=== PATIENT | female | born 1940 | race Caucasian/White ===

== ENCOUNTER 2016-09-29 10:26 | Observation (INO) | payer MEDICARE ==
[2016-09-29] MEDS ORDERED: ONDANSETRON HCL 4 MG/2 ML VIAL ONE (10:46)
[2016-09-29] MEDS ORDERED: ACETAMINOPHEN 325 MG TABLET PO ONE ×2 (10:46→10:47)
[2016-09-29 10:47] LABS: BASOPHILS 0.4 % (0.0-2.0); EOSINOPHILS 0.6 % (0.0-6.0); HEMATOCRIT 44.2 % (36.0-48.0); HEMOGLOBIN 14.9 g/dL (12.0-16.0); LYMPHOCYTES 5.8 % (20.0-40.0); LYMPHOCYTES# 0.4 X 10^3uL (0.8-3.8); MEAN CELL VOLUME 84.9 fL (84.0-102.0); MEAN CORPUS. HGB CONCENTRATION 33.7 g/dL (32.0-36.0); MEAN CORPUSCULAR HEMOGLOBIN 28.6 pg (29.0-35.0); MEAN PLATELET VOLUME 7.7 fL (7.4-10.4); MONOCYTES 0.2 % (2.0-10.0); NEUTROPHILS# 6.9 X 10^3uL (2.6-6.7); PLATELET COUNT 186 X 10^3uL (130-440); RED CELL DISTRIBUTION WIDTH 13.2 % (11.5-14.5); WHITE BLOOD COUNT 7.3 X 10^3uL (3.9-10.7)
[2016-09-29 10:59] LABS: ALBUMIN 4.2 g/dL (3.5-5.0); ALKALINE PHOSPHATASE 71 U/L (38-126); ALT 26 U/L (9-52); AST 20 U/L (14-36); BILIRUBIN, DIRECT 0.3 mg/dL (0.0-0.4); BILIRUBIN, TOTAL 0.8 mg/dL (0.2-1.3); BLOOD UREA NITROGEN 12 mg/dL (7-17); CHLORIDE 99 mmol/L (98-107); CREATININE 0.8 mg/dL (0.5-1.0); EST GLOMERULAR FILTRATION RATE > 60 mL/min; GLUCOSE 104 mg/dL (70-100); LIPASE 260 U/L (23-300); POTASSIUM 3.8 mmol/L (3.5-5.1); SODIUM 141 mmol/L (137-145); TOTAL PROTEIN 7.3 g/dL (6.3-8.2)
[2016-09-29 11:20] LABS: URINE MUCUS NONE SEEN (Up to 25%)
[2016-09-29] MEDS ORDERED: LEVOFLOXACIN/D5W 150 ML IV ONE (11:30)
[2016-09-29 11:40] LABS: URINE APPEARANCE CLEAR; URINE BACTERIA NONE SEEN (<10/hpf); URINE BILIRUBIN NEGATIVE (NEGATIVE); URINE COLOR YELLOW; URINE GLUCOSE NORMAL (NEGATIVE); URINE KETONE NEGATIVE (NEGATIVE); URINE LEUKOCYTE ESTERASE NEGATIVE (NEGATIVE); URINE NITRITE NEGATIVE (NEGATIVE); URINE PH 5.5 (5-7); URINE PROTEIN NEGATIVE (NEG - TRACE); URINE RBC 0-5/hpf (0-5/hpf); URINE SQUAMOUS EPITHELIAL CELL 0-5/hpf (<= 15/hpf); URINE UROBILINOGEN NORMAL (NEG-1mg/dL); URINE WBC 0-4/hpf (0-4/hpf)
[2016-09-29 11:41] LABS: URINE BLOOD TRACE (NEGATIVE)
[2016-09-29] MEDS ORDERED: HOME MEDICATION LIST NEEDED 1 EA EACH MC ONE (13:55)
[2016-09-29] MEDS ORDERED: metroNIDAZOLE 500 MG TABLET PO ONE (14:00)
--- NOTE | 2016-09-29 15:35 | ER NURSING DOCUMENTATION ---
Nurse's Notes [facility] Name:Yasmine Harrison Age:76 yrs Sex:Female :1940 Arrival Date:09/29/2016 Time:10:26 Bed4 Private MD:Tori Araiza Diagnosis:Diverticulitis w/o Hemorrhage Presentation: 09/29 10:28 Presenting complaint: Patient states: pt has had uncontrollable shaking since [address] also states she has some abd pain. Transition of care: Home. Care prior to arrival: IV initiated. gauge and site 18 G right AC. 10:28 Method Of Arrival: EMS: 410 st 10:31 Notified ED Physician of Dr. Cruz notified. st 10:31 Acuity: RON 2 st Triage Assessment: 10:28 General: Appears ill, uncomfortable, Behavior is cooperative. st 10:28 Pain: Denies pain. Complains of pain in abdomen Unable to use pain scale. pt has no st pain now but she has had lower abd pain. EENT: Oral mucosa is dry. Neuro: No deficits noted. Cardiovascular: Capillary refill < 3 seconds Heart tones present. Respiratory: No deficits noted. GI: Abdomen is flat, non- distended Abd is soft X 4 quads Abd is non tender X 4 quads Reports nausea, abd pain generalised. : Reports urinary frequency "maybe a little more then usual but some times that can be normal". Musculoskeletal: pt has whole body shivering. Historical: - Allergies: Sulfa (Sulfonamide Antibiotics); Tape; - Home Meds: 1. simethicone 80 mg oral tab 2. losartan 50 mg oral tab 1 tab once daily 3. gabapentin 100 mg oral tab 4. ranitidine HCl 150 mg oral cap 1 cap 2 times per day 5. Lactaid Oral daily - PMHx: HYPERTENSION; GERD; ANXIETY; - PSHx: TONSILLECTOMY; HYSTERECTOMY; - Tetanus: > 10 years. - Ebola Screening: : Patient denies exposure to infectious person. Patient denies travel to an Ebola-affected area in the 21 days before illness onset. . - Immunization history: Flu Vaccine < 1 year. - Social history: Smoking status: Patient states was never smoker of tobacco. Patient/guardian denies using alcohol, marijuana. Screenin:02 Infectious Disease Risk None. Abuse screen: Denies threats or abuse. Denies injuries st from another. Nutritional screening: No deficits noted. Assessment: 11:23 General: pt is no longer shaking and states she does not feel as cold. . st 13:27 General: pt resting quietly. st Vital Signs: 10:28 BP 133 / 87; Pulse 113; Resp 20; Temp 100.7(TE); Pulse Ox 92% on R/A; Weight 58.97 kg; st Height 5 ft. 1 in. (154.94 cm); Pain 0/10; 11:18 BP 113 / 58; Pulse 112; Pulse Ox 94% ; st 11:30 Temp 102.6; st 11:30 BP 109 / 61; Pulse 115; Pulse Ox 93% ; st 13:26 BP 104 / 59; Pulse 94; Resp 16; Temp 99.7; Pulse Ox 93% on 2 lpm NC; Pain 0/10; st 10:28 Body Mass Index 24.56 (58.97 kg, 154.94 cm) st ED Course: 10:28 Patient arrived in ED. ds 10:28 Tori Araiza MD is Private Physician. ds 10:[address] 10:30 Dalia Ornelas, RN is Primary Nurse. st 10:[address] 10:34 Erik Cruz MD is Attending Physician. sc 10:44 Port Xray Completed. ms 11:00 Second set of blood cultures drawn. st 11:02 Valuables Remains with patient Patient has correct armband on for positive st identification. Placed in gown. Bed in low position. Call light in reach. Side rails up X2. nuclear monitoring technician on. Pulse ox on. NIBP on. 11:17 Straight cath inserted Specimen obtained. st 11:17 Urine collected. I & O cath specimen. st 11:20 Oxygen Oxygen administration via nasal cannula @ 2L/min. st 12:33 Assisted to bedside commode. st 12:48 Inserted peripheral IV: 20 gauge in left antecubital area Discontinued IV pulled by pt. st 12:[address] meenu 13:24 Patient moved back from [address]. meenu 13:58 Mickey Day MD is Admitting Physician. sc Administered Medications: 10:40 Drug: NS 0.9% 500 ml; Route: IV; Rate: bolus; Site: right antecubital; st 11:57 Follow up: IV Status: Completed infusion; IV Intake: 500ml st 10:40 Drug: Zofran 4 mg; Route: IVP; Infused Over: 2 mins; Site: right antecubital; st 10:49 Follow up: Response: Nausea is decreased st 10:49 Drug: Acetaminophen 975 mg; Route: PO; st 13:28 Follow up: Response: fever down st 11:23 Drug: Levaquin 750 mg; Route: IVPB; Site: right antecubital; st 13:27 Follow up: IV Status: Completed infusion; IV Intake: 150ml st 11:57 Drug: NS 0.9% 500 ml; Route: IV; Rate: bolus; Site: right antecubital; st 13:27 Follow up: IV Status: Completed infusion; IV Intake: 500ml st 13:53 Drug: Flagyl 500 mg; Route: PO; st 15:34 Follow up: Response: No adverse reaction st Intake: 11:57 IV: 500ml; Total: 500ml. st 13:27 IV: 500ml; Total: 1000ml. st 13:27 IV: 150ml; Total: 1150ml. st Outcome: 13:59 Decision to Admit by Provider. ri 14:29 Discharge instructions given to patient, Instructed on need to admit st 15:33 Admitted to Med/surg accompanied by nurse. st 15:33 Condition: stable 15:33 Report given to RN 15:34 Patient left the ED. st Signatures: Dalia Ornelas RN RN st Vicenta, Erica, Reg Reg Erik Cisse MD MD sc Strickland, Mary ms Abbott, Laura lea
--- NOTE | 2016-09-29 15:35 | ER PHYSICIAN DOCUMENTATION ---
Physician Documentation [facility] Name:Yasmine Harrison Age:76 yrs Sex:Female :1940 Arrival Date:09/29/2016 Time:10:26 Bed4 Private MD:Tori Araiza ED, Scott Disposition: 09/29/16 13:59 Admit ordered for Mickey Day. Preliminary diagnosis is Diverticulitis w/o Hemorrhage. - Bed requested for Medical/Surgical. - Condition is Good. - Problem is new. - Symptoms have improved. 23 HR OBS Yes HPI: 09/29 13:34 This 76 yrs old Female presents to ER via EMS with complaints of Flu Symptoms.sc 13:34 The patient presents with abdominal pain in the lower abdomen, in the left lower sc quadrant. Onset: The symptoms/episode began/occurred this morning. The symptoms do not radiate. Associated signs and symptoms: Pertinent positives: dysuria, fever. The symptoms are described as constant. Severity of pain: At its worst the pain was moderate. Historical: - Allergies: Sulfa (Sulfonamide Antibiotics); Tape; - Home Meds: 1. simethicone 80 mg oral tab 2. losartan 50 mg oral tab 1 tab once daily 3. gabapentin 100 mg oral tab 4. ranitidine HCl 150 mg oral cap 1 cap 2 times per day 5. Lactaid Oral daily - PMHx: HYPERTENSION; GERD; ANXIETY; - PSHx: TONSILLECTOMY; HYSTERECTOMY; - Tetanus: > 10 years. - Ebola Screening: : Patient denies exposure to infectious person. Patient denies travel to an Ebola-affected area in the 21 days before illness onset. . - Immunization history: Flu Vaccine < 1 year. - Social history: Smoking status: Patient states was never smoker of tobacco. Patient/guardian denies using alcohol, marijuana. ROS: 13:35 Constitutional: Negative for fever, chills, and weight loss. sc Eyes: Negative for injury, pain, redness, and discharge. ENT: Negative for injury, pain, and discharge. Neck: Negative for injury, pain, and swelling. Cardiovascular: Negative for chest pain, palpitations, and edema. Respiratory: Negative for shortness of breath, cough, wheezing, and pleuritic chest pain. Back: Negative for injury and pain. Skin: Negative for injury, rash, and discoloration. 13:35 Neuro: Negative for headache, weakness, numbness, tingling, and seizure. sc 13:35 Abdomen/GI: Positive for abdominal pain, nausea, rigors. Exam: Constitutional: This is a well developed, well nourished patient who is awake, alert, and in no acute distress. Head/Face: Normocephalic, atraumatic. Eyes: Pupils equal round and reactive to light, extra-ocular motions intact. Lids and lashes normal. Conjunctiva and sclera are non-icteric and not injected. Cornea within normal limits. Periorbital areas with no swelling, redness, or edema. ENT: Nares patent. No nasal discharge, no septal abnormalities noted. Tympanic membranes are normal and external auditory canals are clear. Oropharynx with no redness, swelling, or masses, exudates, or evidence of obstruction, uvula midline. Mucous membranes moist. Neck: Trachea midline, no thyromegaly or masses palpated, and no cervical lymphadenopathy. Supple, full range of motion without nuchal rigidity, or vertebral point tenderness. No meningismus. Chest/axilla: Normal chest wall appearance and motion. Nontender with no deformity. No lesions are appreciated. Cardiovascular: Regular rate and rhythm with a normal S1 and S2. No gallops, murmurs, or rubs. Normal PMI, no JVD. No pulse deficits. Respiratory: Lungs have equal breath sounds bilaterally, clear to auscultation and percussion. No rales, rhonchi or wheezes noted. No increased work of breathing, no retractions or nasal flaring. Back: No spinal tenderness. No costovertebral tenderness. Full range of motion. Skin: Warm, dry with normal turgor. Normal color with no rashes, no lesions, and no evidence of cellulitis. 13:57 Neuro: Awake and alert, GCS 15, oriented to person, place, time, and situation. sc Cranial nerves II-XII grossly intact. Motor strength 5/5 in all extremities. Sensory grossly intact. Cerebellar exam normal. Normal gait. 13:57 Abdomen/GI: Inspection: abdomen appears normal, Bowel sounds: active, Palpation: mild abdominal tenderness, in the left lower quadrant, Liver: no appreciated palpable abnormalities. Vital Signs: 10:28 BP 133 / 87; Pulse 113; Resp 20; Temp 100.7(TE); Pulse Ox 92% on R/A; Weight 58.97 kg; st Height 5 ft. 1 in. (154.94 cm); Pain 0/10; 11:18 BP 113 / 58; Pulse 112; Pulse Ox 94% ; st 11:30 Temp 102.6; st 11:30 BP 109 / 61; Pulse 115; Pulse Ox 93% ; st 13:26 BP 104 / 59; Pulse 94; Resp 16; Temp 99.7; Pulse Ox 93% on 2 lpm NC; Pain 0/10; st 10:28 Body Mass Index 24.56 (58.97 kg, 154.94 cm) st MDM: 10:58 Patient medically screened. ny 13:57 Differential diagnosis: bowel obstruction, cholecystitis, diverticulitis, non-specific sc abd pain. Data reviewed: vital signs, nurses notes, lab test result(s), radiologic studies, and as a result, I will admit patient, administer antibiotics. Counseling: I had a detailed discussion with the patient and/or guardian regarding: the historical points, exam findings, and any diagnostic results supporting the discharge/admit diagnosis, lab results, radiology results, the need for further work-up and treatment in the hospital. 09/29 11:02 Order name: LACTATE; Complete Time: 11:03 [facility] 09/29 11:02 Interpretation: Abnormal. ny 09/29 11:03 Order name: CBC AUTO DIF, MDIF/RMOR IF IND; Complete Time: 11:04 [facility] 09/29 11:03 Interpretation: Normal Except: NEUTROPHILS 93.0. ny 09/29 11:03 Order name: BASIC METABOLIC PANEL; Complete Time: 11:04 [facility] 09/29 11:04 Interpretation: Normal. ny 09/29 11:03 Order name: HEPATIC PANEL; Complete Time: 11:04 [facility] 09/29 11:04 Interpretation: Normal. ny 09/29 11:03 Order name: LIPASE; Complete Time: 11:04 [facility] 09/29 11:04 Interpretation: Normal. ny 09/29 11:42 Order name: UA W/ MICRO -CULTURE IF IND [facility] 09/29 10:34 Order name: I & O; Complete Time: 10:40 09/29 10:34 Order name: NPO; Complete Time: 10:40 09/29 10:34 Order name: Oxygen; Complete Time: 11:28 st 09/29 10:34 Order name: Place Patient On Monitor; Complete Time: 09/29 10:34 Order name: Pulse Ox Continuous; Complete Time: :40 st Dispensed Medications: 10:40 Drug: NS 0.9% 500 ml; Route: IV; Rate: bolus; Site: right antecubital; st 11:57 Follow up: IV Status: Completed infusion; IV Intake: 500ml st 10:40 Drug: Zofran 4 mg; Route: IVP; Infused Over: 2 mins; Site: right antecubital; st 10:49 Follow up: Response: Nausea is decreased st 10:49 Drug: Acetaminophen 975 mg; Route: PO; st 13:28 Follow up: Response: fever down st 11:23 Drug: Levaquin 750 mg; Route: IVPB; Site: right antecubital; st 13:27 Follow up: IV Status: Completed infusion; IV Intake: 150ml st 11:57 Drug: NS 0.9% 500 ml; Route: IV; Rate: bolus; Site: right antecubital; st 13:27 Follow up: IV Status: Completed infusion; IV Intake: 500ml st 13:53 Drug: Flagyl 500 mg; Route: PO; st 15:34 Follow up: Response: No adverse reaction st Signatures: Dalia Ornelas RN RN st Chew, Scott, MD MD ny
--- NOTE | 2016-09-29 17:23 | RADIOLOGY REPORT ---
A limited single portable view of the chest demonstrates the heart, vessels and lungs to be unremarkable. No infiltrate, fluid or pneumothorax is seen. IMPRESSION: Unremarkable limited single portable view of the chest. MTDD
--- NOTE | 2016-09-29 17:50 | CT REPORT ---
Radiology report CT abdomen pelvis with contrast Dated September 29, 2016 HISTORY: infection PROCEDURE: 100 cc Isovue 370 was administered without complication. Imaging to the abdomen and pelvis was performed. FINDINGS: There are no prior studies. There is mild bibasilar atelectasis. The spleen, pancreas, adrenal glands and gallbladder appear normal. In the central aspect of the liver there is a simple cyst measuring 5 x 4.2 cm. No ductal dilatation. The aorta is normal in size. Small, subcentimeter periaortic nodes are evident. Small hypodensities in the kidneys are likely cysts. No hydronephrosis. In the sigmoid colon there is a segment of moderate diffuse wall thickening measuring up to 5-6 cm. There is diverticula in this area, along with fatty stranding consistent with acute diverticulitis. No perforation or abscess. No bowel obstruction. The remainder of the bowel is unremarkable. The bladder is normal. The uterus is absent. The adnexal regions are unremarkable. There is no hernia. There is very minimal anterior subluxation of L4 on L5. IMPRESSION: Moderate acute diverticulitis of the sigmoid colon. No perforation, abscess, or obstruction. Remainder of the study is unremarkable except for mild bibasilar atelectasis, and a large simple cyst in the liver. Report called to Dr. mccray Final Electronic Signature: This report was electronically signed by Humza Bear MD on 09/29/2016 1:36 PM. emmanuel / MARIXA
[2016-09-29] MEDS: SIMETHICONE CHEW 80 MG TABLET PO PRN (18:29)
[2016-09-29] MEDS ORDERED: PANTOPRAZOLE 40 MG TABLET PO SCH (18:45)
[2016-09-29] MEDS: metroNIDAZOLE/SOD CL 500 MG in NORMAL SALINE PREMIX 100 ML 1 BAG IV SCH (20:06)
[2016-09-29] MEDS: LORazepam 1 MG TABLET PO SCH (20:08)
[2016-09-29] MEDS: GABAPENTIN 100 MG CAPSULE PO SCH (20:08)
[2016-09-29] MEDS ORDERED: metroNIDAZOLE/SOD CL 100 ML IV ONE (20:15)
[2016-09-29] MEDS: ACETAMINOPHEN 160 MG/5 ML UDC PO PRN (20:27)
[2016-09-29] MEDS ORDERED: O2 HUMIDIFIER 650 ML BOTTLE INHALATION ONE (22:00)
[2016-09-29] MEDS: NORMAL SALINE 1,000 ML IV SCH (23:49)
--- NOTE | 2016-09-30 00:19 | HISTORY & PHYSICAL ---
DATE OF ADMISSION: 09/29/16 PRIMARY CARE PHYSICIAN: Dr. Araiza. CHIEF COMPLAINT: Fever and chills. HISTORY OF PRESENT ILLNESS: This 76-year-old woman has been having some malaise for about a month and some minor diarrhea in the morning for about 2 weeks. This morning, however, she developed fevers and chills, and some mild lower abdominal discomfort. She came to the emergency room for evaluation where she was found to have diverticulitis on CT scan. Her lactate was above 3 and she was felt to have possibly early sepsis so was admitted. In the ED she was given Levaquin 750 mg IV plus Flagyl 500 mg IV. When I evaluated the patient at 6:30 p.m. she was feeling fine. She did have a blood pressure in the low 90s, however. PAST MEDICAL HISTORY 1. Generalized anxiety disorder. 2. Sleep apnea. 3. Hypertriglyceridemia. 4. GERD. 5. Hiatal hernia. 6. Essential hypertension. MEDICATIONS AT HOME Gabapentin 100 mg b.i.d. for anxiety. Lorazepam 0.5 mg t.i.d. regularly. Losartan 50 mg q.a.m. Omeprazole 20 mg q.a.m. Ranitidine 150 mg b.i.d. Gaviscon extra strength p.o. p.r.n. for heartburn. She uses CPAP and oxygen at night. ALLERGIES: Include adhesive tape and sulfa. PAST SURGICAL HISTORY 1. Tonsillectomy. 2. Hysterectomy. FAMILY HISTORY: Her mother had Parkinsons disease. Her brother has diabetes. IMMUNIZATIONS: She had a flu shot on 09/02/15 and had Pneumococcal 13 valent conjugate vaccine on 02/03/16 and the Pneumococcal 23 valent polysaccharide vaccine on 06/29/11. SOCIAL HISTORY: The patient lives here in [facility] alone. She has help from neighbors. She has a full code status. REVIEW OF SYSTEMS GENERAL: Weakness, chills and fever initially. RESPIRATORY: Denies shortness of breath, cough, wheezing. CARDIOVASCULAR: No chest pain or palpitations. GI: Some minor diffuse lower abdominal discomfort earlier today but none today. Mild diarrhea. No nausea and vomiting. : No dysuria. Some urinary frequency. MUSCULOSKELETAL: No myalgias. No pedal edema. PHYSICAL EXAMINATION VITAL SIGNS: Her vital signs on admission were a temperature of 36.6, blood pressure was 92/54, pulse of 74, respirations 18, and O2 sat was 92% on 2 liters. GENERAL: She was alert and oriented times 3 and in no acute distress. HEENT: The oral mucosa was moist. Sinus nontender. NECK: Without adenopathy. LUNGS: Clear. HEART: RRR, no murmur. ABDOMEN: Soft and nontender, nondistended without masses or hepatosplenomegaly. EXTREMITIES: Without edema. NEUROLOGIC: Nonfocal. LABORATORY DATA: Her serum lactate was 3.4. Sodium 141, potassium 3.8, chloride 99, CO2 26. Her nonfasting glucose was at 104 and a creatinine of 0.8. Liver function tests were all normal. White count 7.3 with 93% neutrophils and 6% lymphs, hemoglobin was 15, hematocrit 44 and platelets were 186,000. IMAGING: Included a CT of the abdomen which showed some diverticulitis in the sigmoid colon without abscess. IMPRESSION: Acute diverticulitis with fever and chills and possible early sepsis. Elevated lactate. Mild hypotension. COMORBIDITIES 1. Chronic hypertension. 2. Chronic generalized anxiety disorder. PLAN: I will continue the patient on some IV metronidazole through the night. If she is doing well tomorrow morning I anticipate discharging her on Cipro and Flagyl orally at 500 mg b.i.d. She has done well on a liquid diet so we will advance that as tolerated. She will continue to get IV fluids at 125 mL of normal saline per hour through the night but so far is drinking fairly well. I will continue he on her usual Ativan. I am substituting pantoprazole for the omeprazole temporarily for formulary reasons. I will hold her losartan until she has improved her blood pressure. [facility]
[2016-09-30] MEDS: ACETAMINOPHEN 160 MG/5 ML UDC PO PRN ×3 (02:22→15:33)
[2016-09-30] MEDS ORDERED: metroNIDAZOLE/SOD CL 100 ML IV ONE ×2 (04:40→19:53)
[2016-09-30] MEDS: metroNIDAZOLE/SOD CL 500 MG in NORMAL SALINE PREMIX 100 ML 1 BAG IV SCH ×3 (04:56→19:45)
[2016-09-30 05:40] LABS: BASOPHILS 0.1 % (0.0-2.0); MONOCYTES# 0.4 X 10^3uL (0.2-1.0)
[2016-09-30 05:45] LABS: HEMATOCRIT 37.6 % (36.0-48.0); HEMOGLOBIN 12.9 g/dL (12.0-16.0); LYMPHOCYTES 2.1 % (20.0-40.0); LYMPHOCYTES# 0.2 X 10^3uL (0.8-3.8); MEAN CELL VOLUME 84.3 fL (84.0-102.0); MEAN CORPUS. HGB CONCENTRATION 34.3 g/dL (32.0-36.0); MEAN CORPUSCULAR HEMOGLOBIN 28.9 pg (29.0-35.0); MEAN PLATELET VOLUME 7.6 fL (7.4-10.4); MONOCYTES 4.1 % (2.0-10.0); NEUTROPHILS# 8.4 X 10^3uL (2.6-6.7); PLATELET COUNT 128 X 10^3uL (130-440); RED BLOOD COUNT 4.46 X 10^6uL (4.20-6.10)
[2016-09-30 05:55] LABS: BLOOD UREA NITROGEN 8 mg/dL (7-17); CHLORIDE 107 mmol/L (98-107); CREATININE 0.8 mg/dL (0.5-1.0); EST GLOMERULAR FILTRATION RATE > 60 mL/min; GLUCOSE 113 mg/dL (70-100); SODIUM 138 mmol/L (137-145)
[2016-09-30 06:06] LABS: NEUTROPHILS 93.7 % (54.0-75.0)
[2016-09-30] MEDS: PANTOPRAZOLE 40 MG TABLET PO SCH (06:08)
[2016-09-30] MEDS: GABAPENTIN 100 MG CAPSULE PO SCH ×2 (08:26→22:12)
[2016-09-30] MEDS: LORazepam 1 MG TABLET PO SCH ×3 (08:26→22:10)
[2016-09-30] MEDS: LOSARTAN POTASSIUM 50 MG TABLET PO SCH (08:28)
[2016-09-30] MEDS: NORMAL SALINE 1,000 ML IV SCH (08:46)
--- NOTE | 2016-09-30 08:46 | PROGRESS NOTE: IM APSO ---
Assessment and Plan - Date of Encounter Date of Encounter: 09/30/16 (1) Acute diverticulitis Status: Acute Assessment and plan: She had another bout of fever up to 38.4 accompanied by chills last evening This morning she was still a little hypotensive at 102 systolic. I think it would be wisest to continue treating her here for 1 more day. I will continue her on Flagyl 500 mg IVevery 8 hoursand switch from Levaquin to Cipro 500 mg by mouth twice a day.Dr. Araiza, her PCP, will probably discharge her tomorrow morning. Current Visit: Yes (2) Anxiety Status: Acute Assessment and plan: acute on chronic. Continue lorazepam 0.5 3 times a day and gabapentin 100 twice a day Current Visit: No (3) Diarrhea Status: Acute Assessment and plan: Due to diverticulitis. Resolved Current Visit: Yes (4) Hypertension Status: Acute Assessment and plan: She has actually been hypotensive, probably from an early sepsis-type phenomenon. Continue to hold her losartan for now Current Visit: No - Time Spent With Patient Total time spent with greater than 50% in coordination of care (as documented) at patient's floor/unit and/or counseling patient: IM: PN Subjective General: fatigue, anxiety, fever, chills (last night), no good appetite Cardiovascular: no chest pain, no palpitations Respiratory: no cough, no wheeze, no SOB Gastrointestinal: abdominal pain (very mild diffuse lower abdominal pain.), no diarrhea (resolved) Genitourinary: no dysuria Musculoskeletal: no swelling Integumentary: no rashes Neurological: no headache IM: PN Objective Exam - I&O/Vital Signs I&O: Intake & Output 09/29/16 09/30/16 09/30/16 21:59 05:59 13:59 Intake Total 600 2545 Output Total 600 1150 Balance 0 1395 Weight 63.04 kg 66.224 kg Intake: IV 400 1895 Left Antecubital 400 1895 Oral 200 650 Output: Urine 600 1150 Other: Urine Appearance Clear Urine Color Yellow Stool Size Copious Stool Characteristics Liquid Voiding Method Toilet Toilet # Voids 0 6 # Bowel Movements 4 Vital Signs: Last Vital Signs Temp 36.7 C 09/30/16 07:00 Pulse 85 09/30/16 07:00 Resp 15 09/30/16 07:00 BP 118/50 02/09/17 07:00 Pulse Ox 95 09/30/16 07:00 Oxygen Flow Rate 2 Oxygen Delivery Method Nasal Cannula - Constitutional General appearance: Present: obese. Absent: acute distress - ENT ENT exam: Present: mucous membranes moist - Respiratory Respiratory exam: Present: clear - Cardiovascular Cardiovascular exam: Present: RRR. Absent: systolic murmur - GI/Abdominal GI/Abdominal exam: Present: soft. Absent: distended (obese), tenderness - Neurological Exam Neurological exam: Present: alert, normal gait, oriented X3 - Psychiatric Psychiatric exam: Present: anxious (she only slept 1 hour last night.) - Lab Labs: Laboratory Last Values WBC 9.0 X 10^3uL (3.9-10.7) 09/30/16 05:00 RBC 4.46 X 10^6uL (4.20-6.10) 09/30/16 05:00 Hgb 12.9 g/dL (12.0-16.0) 09/30/16 05:00 Hct 37.6 % (36.0-48.0) 09/30/16 05:00 MCV 84.3 fL (84.0-102.0) 09/30/16 05:00 MCH 28.9 pg (29.0-35.0) L 09/30/16 05:00 MCHC 34.3 g/dL (32.0-36.0) 09/30/16 05:00 RDW 13.0 % (11.5-14.5) 09/30/16 05:00 Plt Count 128 X 10^3uL (130-440) L 09/30/16 05:00 MPV 7.6 fL (7.4-10.4) 09/30/16 05:00 Neutrophils % 93.7 % (54.0-75.0) H 09/30/16 05:00 Lymphocytes % 2.1 % (20.0-40.0) L 09/30/16 05:00 Eosinophils % 0.0 % (0.0-6.0) 09/30/16 05:00 Basophils % 0.1 % (0.0-2.0) 09/30/16 05:00 Neutrophils # 8.4 X 10^3uL (2.6-6.7) H 09/30/16 05:00 Lymphocytes # 0.2 X 10^3uL (0.8-3.8) L 09/30/16 05:00 Monocytes 4.1 % (2.0-10.0) 09/30/16 05:00 Monocytes # 0.4 X 10^3uL (0.2-1.0) 09/30/16 05:00 Eosinophils # 0.0 X 10^3uL (0.0-0.4) 09/30/16 05:00 Basophils # 0.0 X 10^3uL (0.0-0.1) 09/30/16 05:00 Sodium 138 mmol/L (137-145) 09/30/16 05:00 Potassium 4.0 mmol/L (3.5-5.1) 09/30/16 05:00 Chloride 107 mmol/L (98-107) 09/30/16 05:00 Carbon Dioxide 22 mmol/L (22-30) 09/30/16 05:00 BUN 8 mg/dL (7-17) 09/30/16 05:00 Creatinine 0.8 mg/dL (0.5-1.0) 09/30/16 05:00 GFR Calculation > 60 mL/min 09/30/16 05:00 Glucose 113 mg/dL (70-100) H 09/30/16 05:00 Lactic Acid 3.4 mmol/L (0.7-2.1) H 09/29/16 10:15 Calcium 8.0 mg/dL (8.4-10.2) L 09/30/16 05:00 Total Bilirubin 0.8 mg/dL (0.2-1.3) D 09/29/16 10:15 Direct Bilirubin 0.3 mg/dL (0.0-0.4) 09/29/16 10:15 AST 20 U/L (14-36) 09/29/16 10:15 ALT 26 U/L (9-52) 09/29/16 10:15 Alkaline Phosphatase 71 U/L (38-126) 09/29/16 10:15 Total Protein 7.3 g/dL (6.3-8.2) 09/29/16 10:15 Albumin 4.2 g/dL (3.5-5.0) 09/29/16 10:15 Lipase 260 U/L (23-300) 09/29/16 10:15 Urine Color Yellow 09/29/16 11:15 Urine Appearance Clear 09/29/16 11:15 Urine pH 5.5 (5-7) 09/29/16 11:15 Ur Specific Umpire 1.010 (0.001-1.035) 09/29/16 11:15 Urine Protein Negative (NEG - TRACE) 09/29/16 11:15 Urine Ketones Negative (NEGATIVE) 09/29/16 11:15 Urine Blood Trace (NEGATIVE) A 09/29/16 11:15 Urine Nitrate Negative (NEGATIVE) 09/29/16 11:15 Urine Bilirubin Negative (NEGATIVE) 09/29/16 11:15 Urine Urobilinogen Normal (NEG-1mg/dL) 09/29/16 11:15 Ur Leukocyte Esterase Negative (NEGATIVE) 09/29/16 11:15 Urine RBC 0-5/hpf (0-5/hpf) 09/29/16 11:15 Urine WBC 0-4/hpf (0-4/hpf) 09/29/16 11:15 Ur Squamous Epith Cells 0-5/hpf (<= 15/hpf) 09/29/16 11:15 Urine Bacteria None seen (<10/hpf) 09/29/16 11:15 Urine Mucus None seen (Up to 25%) 09/29/16 11:15 Urine Glucose Normal (NEGATIVE) 09/29/16 11:15 Quality Questions - VTE Prophylaxis Assessment VTE Present on Admission?: No Patient at risk for venous thromboembolism?: No VTE Risk Level: High Risk VTE Medical Contraindication: Medical contraindication (she has acute diverticulitis so is at risk for GI bleeding.)
[2016-09-30] MEDS: CIPROFLOXACIN HCL 500 MG TABLET PO SCH ×2 (08:48→19:46)
[2016-09-30] MEDS ORDERED: LOSARTAN POTASSIUM 50 MG TABLET PO SCH (09:00)
[2016-09-30] MEDS: SIMETHICONE CHEW 80 MG TABLET PO PRN (14:15)
[2016-09-30] MEDS ORDERED: NORMAL SALINE FLUSH 250 ML ONE (15:41)
[2016-09-30] MEDS: ONDANSETRON ODT 4 MG TAB.RAPDIS PO PRN (21:56)
[2016-10-01] MEDS ORDERED: metroNIDAZOLE/SOD CL 100 ML IV ONE (04:24)
[2016-10-01] MEDS: metroNIDAZOLE/SOD CL 500 MG in NORMAL SALINE PREMIX 100 ML 1 BAG IV SCH (04:42)
[2016-10-01] MEDS: PANTOPRAZOLE 40 MG TABLET PO SCH (05:57)
[2016-10-01 06:37] LABS: BASOPHILS 0.4 % (0.0-2.0); EOSINOPHILS 1.3 % (0.0-6.0); EOSINOPHILS# 0.1 X 10^3uL (0.0-0.4); HEMATOCRIT 35.9 % (36.0-48.0); HEMOGLOBIN 11.6 g/dL (12.0-16.0); LYMPHOCYTES# 0.5 X 10^3uL (0.8-3.8); MEAN CELL VOLUME 84.9 fL (84.0-102.0); MEAN CORPUS. HGB CONCENTRATION 32.4 g/dL (32.0-36.0); MEAN CORPUSCULAR HEMOGLOBIN 27.5 pg (29.0-35.0); MEAN PLATELET VOLUME 7.8 fL (7.4-10.4); MONOCYTES 7.4 % (2.0-10.0); MONOCYTES# 0.4 X 10^3uL (0.2-1.0); NEUTROPHILS 81.9 % (54.0-75.0); NEUTROPHILS# 4.1 X 10^3uL (2.6-6.7); RED BLOOD COUNT 4.23 X 10^6uL (4.20-6.10); RED CELL DISTRIBUTION WIDTH 13.2 % (11.5-14.5); WHITE BLOOD COUNT 5.1 X 10^3uL (3.9-10.7)
--- NOTE | 2016-10-01 07:57 | PROGRESS NOTE: IM SOAP ---
IM: PN Subjective General: fatigue, anxiety, no good appetite, no fever, no chills Cardiovascular: no chest pain, no palpitations Respiratory: no cough, no wheeze, no SOB Gastrointestinal: abdominal pain (very mild diffuse lower abdominal pain.), vomiting (last sierra), no diarrhea (resolved) Genitourinary: no dysuria Musculoskeletal: no swelling Integumentary: no rashes Neurological: no headache IM: PN Objective Exam - I&O/Vital Signs I&O: Intake & Output 09/30/16 10/01/16 10/01/16 21:59 05:59 13:59 Intake Total 2050 350 Output Total 1050 1300 Balance 1000 -950 Intake: IV 1430 Left Antecubital 1430 Oral 620 350 Output: Urine 1050 1300 Other: Urine Appearance Clear Clear Urine Color Yellow Yellow Stool Size Small Small Stool Characteristics Soft Liquid Voiding Method Toilet Toilet # Voids 7 # Bowel Movements 5 2 Vital Signs: Last Vital Signs Temp 37.1 C 10/01/16 06:36 Pulse 74 10/01/16 06:36 Resp 13 10/01/16 06:36 BP 126/64 10/01/16 06:36 Pulse Ox 94 10/01/16 06:36 Oxygen Flow Rate 2 Oxygen Delivery Method CPAP - Constitutional General appearance: Present: obese. Absent: acute distress - ENT ENT exam: Present: mucous membranes moist - Respiratory Respiratory exam: Present: clear - Cardiovascular Cardiovascular exam: Present: RRR. Absent: systolic murmur - GI/Abdominal GI/Abdominal exam: Present: soft. Absent: distended, tenderness - Extremities Exam Extremities exam: Absent: edema - Neurological Exam Neurological exam: Present: alert, normal gait, oriented X3 - Psychiatric Psychiatric exam: Present: anxious (she only slept 1 hour last night.) - Lab Labs: Laboratory Last Values WBC 5.1 X 10^3uL (3.9-10.7) 10/01/16 06:10 RBC 4.23 X 10^6uL (4.20-6.10) 10/01/16 06:10 Hgb 11.6 g/dL (12.0-16.0) L 10/01/16 06:10 Hct 35.9 % (36.0-48.0) L 10/01/16 06:10 MCV 84.9 fL (84.0-102.0) 10/01/16 06:10 MCH 27.5 pg (29.0-35.0) L 10/01/16 06:10 MCHC 32.4 g/dL (32.0-36.0) 10/01/16 06:10 RDW 13.2 % (11.5-14.5) 10/01/16 06:10 Plt Count 99 X 10^3uL (130-440) L 10/01/16 06:10 MPV 7.8 fL (7.4-10.4) 10/01/16 06:10 Neutrophils % 81.9 % (54.0-75.0) H 10/01/16 06:10 Lymphocytes % 9.0 % (20.0-40.0) L 10/01/16 06:10 Eosinophils % 1.3 % (0.0-6.0) 10/01/16 06:10 Basophils % 0.4 % (0.0-2.0) 10/01/16 06:10 Neutrophils # 4.1 X 10^3uL (2.6-6.7) 10/01/16 06:10 Lymphocytes # 0.5 X 10^3uL (0.8-3.8) L 10/01/16 06:10 Monocytes 7.4 % (2.0-10.0) 10/01/16 06:10 Monocytes # 0.4 X 10^3uL (0.2-1.0) 10/01/16 06:10 Eosinophils # 0.1 X 10^3uL (0.0-0.4) 10/01/16 06:10 Basophils # 0.0 X 10^3uL (0.0-0.1) 10/01/16 06:10 Sodium 138 mmol/L (137-145) 09/30/16 05:00 Potassium 4.0 mmol/L (3.5-5.1) 09/30/16 05:00 Chloride 107 mmol/L (98-107) 09/30/16 05:00 Carbon Dioxide 22 mmol/L (22-30) 09/30/16 05:00 BUN 8 mg/dL (7-17) 09/30/16 05:00 Creatinine 0.8 mg/dL (0.5-1.0) 09/30/16 05:00 GFR Calculation > 60 mL/min 09/30/16 05:00 Glucose 113 mg/dL (70-100) H 09/30/16 05:00 Lactic Acid 3.4 mmol/L (0.7-2.1) H 09/29/16 10:15 Calcium 8.0 mg/dL (8.4-10.2) L 09/30/16 05:00 Total Bilirubin 0.8 mg/dL (0.2-1.3) D 09/29/16 10:15 Direct Bilirubin 0.3 mg/dL (0.0-0.4) 09/29/16 10:15 AST 20 U/L (14-36) 09/29/16 10:15 ALT 26 U/L (9-52) 09/29/16 10:15 Alkaline Phosphatase 71 U/L (38-126) 09/29/16 10:15 Total Protein 7.3 g/dL (6.3-8.2) 09/29/16 10:15 Albumin 4.2 g/dL (3.5-5.0) 09/29/16 10:15 Lipase 260 U/L (23-300) 09/29/16 10:15 Urine Color Yellow 09/29/16 11:15 Urine Appearance Clear 09/29/16 11:15 Urine pH 5.5 (5-7) 09/29/16 11:15 Ur Specific Hope 1.010 (0.001-1.035) 09/29/16 11:15 Urine Protein Negative (NEG - TRACE) 09/29/16 11:15 Urine Ketones Negative (NEGATIVE) 09/29/16 11:15 Urine Blood Trace (NEGATIVE) A 09/29/16 11:15 Urine Nitrate Negative (NEGATIVE) 09/29/16 11:15 Urine Bilirubin Negative (NEGATIVE) 09/29/16 11:15 Urine Urobilinogen Normal (NEG-1mg/dL) 09/29/16 11:15 Ur Leukocyte Esterase Negative (NEGATIVE) 09/29/16 11:15 Urine RBC 0-5/hpf (0-5/hpf) 09/29/16 11:15 Urine WBC 0-4/hpf (0-4/hpf) 09/29/16 11:15 Ur Squamous Epith Cells 0-5/hpf (<= 15/hpf) 02/08/17 11:15 Urine Bacteria None seen (<10/hpf) 09/29/16 11:15 Urine Mucus None seen (Up to 25%) 09/29/16 11:15 Urine Glucose Normal (NEGATIVE) 09/29/16 11:15 Assessment and Plan - Date of Encounter Date of Encounter: 10/01/16 (1) Acute diverticulitis Status: Acute Assessment and plan: Clinically improving with less abd discomfort, no further fever or chills. However, poor PO intake, vomitted last night. Will move all meds to PO, dose Zofran before meals (discussed with pt and nurse) and see if PO intake improves and tolerating PO meds well. Current Visit: Yes (2) Anxiety Status: Chronic Current Visit: No (3) Hypertension Status: Chronic Assessment and plan: Cozaar presently held as was hypotensive yesterday, but will need restarted at d /c or with f/u as outpt, as BPs indicate. Would not restart now as BP is at goal , probably will not tolerate Cozaar at this time. Current Visit: No - Time Spent With Patient Total time spent with greater than 50% in coordination of care (as documented) at patient's floor/unit and/or counseling patient:
[2016-10-01] MEDS: metroNIDAZOLE 500 MG TABLET PO SCH ×3 (09:35→20:42)
[2016-10-01] MEDS: LORazepam 0.5 MG TABLET PO SCH ×3 (09:35→20:42)
[2016-10-01] MEDS: GABAPENTIN 100 MG CAPSULE PO SCH ×2 (09:35→20:42)
[2016-10-01] MEDS: CIPROFLOXACIN HCL 500 MG TABLET PO SCH ×2 (09:35→20:42)
[2016-10-01] MEDS: LOSARTAN POTASSIUM 50 MG TABLET PO SCH (09:35)
[2016-10-01] MEDS ORDERED: WATER IRRIG 1,000 ML BOTTLE ONE (10:09)
[2016-10-01] MEDS ORDERED: ACETAMINOPHEN 325 MG TABLET PO PRN (15:16)
[2016-10-01] MEDS: ONDANSETRON ODT 4 MG TAB.RAPDIS PO PRN (15:22)
[2016-10-01] MEDS ORDERED: ACETAMINOPHEN 325 MG TABLET PO ONE (15:25)
[2016-10-01 23:12] VITALS: BP 127/73; PULSE 69; RESP 13; TEMP 98.6; O2SAT 92
== END 2016-10-02 08:15 | disposition home or self-care (01) ==
LOC: ER 10:26 → IN 14:02
PROVIDERS: ADMIT Family Medicine; ATTEND Family Medicine
DX: K57.32 Diverticulitis of large intestine without perforation or abscess without bleeding (principal); I10 Essential (primary) hypertension; F41.9 Anxiety disorder, unspecified; E78.1 Pure hyperglyceridemia; K21.9 Gastro-esophageal reflux disease without esophagitis; G47.39 Other sleep apnea; Z79.899 Other long term (current) drug therapy; Z74.3 Need for continuous supervision
CPT/HCPCS: 36415; 51701; 71010; 74177; 80048; 80076; 81001; 83605; 83690; 85025; 87040; 87077; 87086; 87186; 96361; 96365; 96366; 96375; 99285; A0425; A0429; A4217; E0555; G0378; J1956; J2405; J7030

== ENCOUNTER 2016-10-24 19:05 | Emergency (ER) | payer MEDICARE ==
[2016-10-24 19:29] LABS: BASOPHILS 0.6 % (0.0-2.0); EOSINOPHILS 1.1 % (0.0-6.0); EOSINOPHILS# 0.1 X 10^3uL (0.0-0.4); HEMATOCRIT 46.1 % (36.0-48.0); HEMOGLOBIN 15.5 g/dL (12.0-16.0); LYMPHOCYTES 22.1 % (20.0-40.0); LYMPHOCYTES# 1.2 X 10^3uL (0.8-3.8); MEAN CELL VOLUME 84.8 fL (80.0-100.0); MEAN CORPUS. HGB CONCENTRATION 33.6 g/dL (32.0-36.0); MEAN CORPUSCULAR HEMOGLOBIN 28.4 pg (29.0-35.0); MEAN PLATELET VOLUME 7.9 fL (7.4-10.4); MONOCYTES 11.5 % (2.0-10.0); MONOCYTES# 0.6 X 10^3uL (0.2-1.0); NEUTROPHILS 64.7 % (54.0-75.0); NEUTROPHILS# 3.3 X 10^3uL (2.6-6.7); PLATELET COUNT 211 X 10^3uL (130-440); RED BLOOD COUNT 5.44 X 10^6uL (4.20-6.10); WHITE BLOOD COUNT 5.2 X 10^3uL (3.9-10.7)
[2016-10-24 19:41] LABS: BLOOD UREA NITROGEN 10 mg/dL (7-17); CALCIUM 9.6 mg/dL (8.4-10.2); CHLORIDE 101 mmol/L (98-107); CREATININE 0.7 mg/dL (0.5-1.0); EST GLOMERULAR FILTRATION RATE > 60 mL/min; GLUCOSE 115 mg/dL (70-100); MAGNESIUM 2.3 mg/dL (1.6-2.3); POTASSIUM 3.6 mmol/L (3.5-5.1); SODIUM 137 mmol/L (137-145)
[2016-10-24 19:54] LABS: TROPONIN I < 0.012 ng/mL (0.00-0.034)
--- NOTE | 2016-10-24 20:56 | ER NURSING DOCUMENTATION ---
Nurse's Notes [facility] Name:Yasmine Harrison Age:76 yrs Sex:Female :1940 Arrival Date:10/24/2016 Time:19:05 BedTrauma C Private MD:Tori Araiza Diagnosis:Palpitations Presentation: 10/24 19:25 Presenting complaint: Patient states: Feels like she has rapid heart beat. Denies CP or mk4 SOB. Transition of care: Home. 19:25 Method Of Arrival: [facility] 19:25 Acuity: RON 3 4 19:25 Asprin Given Given in ED. 4 Triage Assessment: 19:30 General: Appears in no apparent distress. Pain: Denies pain. EENT: No deficits noted. mk4 Neuro: No deficits noted. Cardiovascular: Capillary refill < 3 seconds Heart tones present. Respiratory: Airway is patent Trachea midline Respiratory effort is even, unlabored, Respiratory pattern is regular, symmetrical, Breath sounds are clear bilaterally. GI: Abdomen is non- distended Bowel sounds present X 4 quads. : No deficits noted. Derm: DX last week of staph infection on buttocks. Musculoskeletal: Circulation, motion, and sensation intact Capillary refill < 3 seconds. 19:30 General: Behavior is cooperative. mk4 Historical: - Allergies: Sulfa (Sulfonamide Antibiotics); Tape; - Home Meds: 1. simethicone 80 mg oral tab Unknown 2. losartan 50 mg oral tab 1 tab once daily 3. gabapentin 100 mg oral tab 4. ranitidine HCl 150 mg oral cap 1 cap 2 times per day 5. Lactaid Oral Unknown - PMHx: HYPERTENSION; GERD; ANXIETY; Diverticulitis w/o Hemorrhage (September 29, 2016); - PSHx: TONSILLECTOMY; HYSTERECTOMY; - Tetanus: < 10 years. - Ebola Screening: : No symptoms or risks identified at this time. . - Immunization history: Flu Vaccine < 1 year. - Social history: Smoking status: Patient states was never smoker of tobacco. Screenin:43 Infectious Disease Risk None. Abuse screen: deenies. Nutritional screening: No deficits mk4 noted. Assessment: 19:30 Pain: Pain began 1 hour ago. 4 19:30 Pain: Pain does not radiate. 4 19:43 See Triage Assessment done by same RN. 4 Vital Signs: 19:41 BP 156 / 119; Pulse 93; Resp 16; Temp 98.4; mk4 19:41 Pulse Ox 96% on R/A; Weight 83.91 kg; Height 5 ft. 2 in. (157.48 cm); Pain 0/10; mk4 20:20 BP 140 / 80; Pulse 77; Resp 15; Pulse Ox 89% on R/A; Pain 0/10; mk4 20:51 BP 141 / 78; Pulse 76; Resp 17; Pulse Ox 91% on R/A; mk4 19:41 Body Mass Index 33.84 (83.91 kg, 157.48 cm) 4 ED Course: 19:06 Patient arrived in ED. [facility] 19:06 Tori Araiza MD is Private Physician. [facility] 19:12 Erik Cruz MD is Attending Physician. [place] 19:15 Jamila Branch is Primary Nurse. 4 19:27 Triage completed. 4 19:42 Allergy Band Placed Arm band placed on Bed in low position Call Light in Reach Side mk4 rails up x2. EKG done per protocol. Labs ordered per protocol. Drawn by ED staff. 19:43 Valuables Remains with patient. Cardiac Monitoring On for Nurse Monitoring only. Pulse mk4 Ox - RN Monitoring Only NIBP On - RN Monitoring Only. Noise minimized. Lights dimmed. Warm blanket given. 19:44 Inserted peripheral IV: 20 gauge in right antecubital area. 4 20:39 Tori Araiza MD is Referral Physician. wv 03 05:15 EKG attached 4 Administered Medications: 10/24 19:42 Drug: Aspirin Chewable Tablet 324 mg; Route: PO; mk4 20:55 Follow up: Response: No adverse reaction 4 Outcome: 20:40 Discharge ordered by . wv 20:51 Discharged to home ambulatory, with friend. 4 20:51 Condition: good 20:51 Discharge Assessment: Patient awake, alert and oriented x 3. No cognitive and/or functional deficits noted. Patient verbalized understanding of disposition instructions. 20:51 Discharge instructions given to patient, Instructed on discharge instructions, follow up and referral plans. Demonstrated understanding of instructions. 20:55 Patient left the ED. [facility] 10/25 09:49 Discharge F/U Call: Spoke with: patient. Overall Care on a scale of 1-[address] being the best care, you rate our care as: Other comments: pt is feeling better. pt has no questions or concerns at this time. Signatures: Dalia Ornelas, Erik Moreland RN, MD MD sc King, Melody mk4 Addison, Melissa ma1
--- NOTE | 2016-10-24 20:56 | ER PHYSICIAN DOCUMENTATION ---
Physician Documentation [facility] Name:Yasmine Harrison Age:76 yrs Sex:Female :1940 Arrival Date:10/24/2016 Time:19:05 BedTrauma C Private MD:Tori Araiza ED Erik Cruz Disposition: 10/24/16 20:40 Discharged to Home/Self Care. Impression: Palpitations. - Condition is Good. - Discharge Instructions: PALPITATIONS. - Medical Reconciliation form form. - Follow up: Tori Araiza MD; When: As needed; Reason: If symptoms return. - Problem is new. - Symptoms are resolved. HPI: 10/24 19:13 This 76 yrs old Female presents to ER with complaints of Chest Tightness. sc 19:13 The patient presents with a history of heart racing. Context: The symptoms occur at sc rest. Onset: The symptom(s)/episode began/occurred 30 minute(s) ago. Duration: The patient or guardian reports a single episode, that is still ongoing, but improving. Modifying factors: The symptoms are aggravated by nothing. The symptoms are alleviated by prescription medication, history of palpitations, improved with lorazepam?. Associated signs and symptoms: The patient has no apparent associated signs or symptoms, Pertinent positives: anxiety, Pertinent negatives: chest pain, cough, denies chest tightness. Historical: - Allergies: Sulfa (Sulfonamide Antibiotics); Tape; - Home Meds: 1. simethicone 80 mg oral tab Unknown 2. losartan 50 mg oral tab 1 tab once daily 3. gabapentin 100 mg oral tab 4. ranitidine HCl 150 mg oral cap 1 cap 2 times per day 5. Lactaid Oral Unknown - PMHx: HYPERTENSION; GERD; ANXIETY; Diverticulitis w/o Hemorrhage (September 29, 2016); - PSHx: TONSILLECTOMY; HYSTERECTOMY; - Tetanus: < 10 years. - Ebola Screening: : No symptoms or risks identified at this time. . - Immunization history: Flu Vaccine < 1 year. - Social history: Smoking status: Patient states was never smoker of tobacco. ROS: 19:14 Constitutional: Negative for fever, chills, and weight loss. sc Eyes: Negative for injury, pain, redness, and discharge. ENT: Negative for injury, pain, and discharge. Neck: Negative for injury, pain, and swelling. Respiratory: Negative for shortness of breath, cough, wheezing, and pleuritic chest pain. Abdomen/GI: Negative for abdominal pain, nausea, vomiting, diarrhea, and constipation. Back: Negative for injury and pain. MS/Extremity: Negative for injury and deformity. Skin: Negative for injury, rash, and discoloration. 19:14 Neuro: Negative for headache, weakness, numbness, tingling, and seizure. sc 19:14 Cardiovascular: Positive for palpitations. 19:14 Psych: Positive for anxiety. Exam: Constitutional: This is a well developed, well nourished patient who is awake, alert, and in no acute distress. Head/Face: Normocephalic, atraumatic. Eyes: Pupils equal round and reactive to light, extra-ocular motions intact. Lids and lashes normal. Conjunctiva and sclera are non-icteric and not injected. Cornea within normal limits. Periorbital areas with no swelling, redness, or edema. ENT: Nares patent. No nasal discharge, no septal abnormalities noted. Tympanic membranes are normal and external auditory canals are clear. Oropharynx with no redness, swelling, or masses, exudates, or evidence of obstruction, uvula midline. Mucous membranes moist. Neck: Trachea midline, no thyromegaly or masses palpated, and no cervical lymphadenopathy. Supple, full range of motion without nuchal rigidity, or vertebral point tenderness. No meningismus. Chest/axilla: Normal chest wall appearance and motion. Nontender with no deformity. No lesions are appreciated. Cardiovascular: Regular rate and rhythm with a normal S1 and S2. No gallops, murmurs, or rubs. Normal PMI, no JVD. No pulse deficits. Respiratory: Lungs have equal breath sounds bilaterally, clear to auscultation and percussion. No rales, rhonchi or wheezes noted. No increased work of breathing, no retractions or nasal flaring. Abdomen/GI: Soft, non-tender, with normal bowel sounds. No distension or tympany. No guarding or rebound. No evidence of tenderness throughout. Back: No spinal tenderness. No costovertebral tenderness. Full range of motion. Skin: Warm, dry with normal turgor. Normal color with no rashes, no lesions, and no evidence of cellulitis. MS/ Extremity: Pulses equal, no cyanosis. Neurovascular intact. Full, normal range of motion, negative Homans's, calves equal bilaterally. 19:15 Neuro: Awake and alert, GCS 15, oriented to person, place, time, and situation. de Cranial nerves II-XII grossly intact. Motor strength 5/5 in all extremities. Sensory grossly intact. Cerebellar exam normal. Normal gait. 19:15 Psych: Behavior/mood is pleasant, cooperative, anxious, Affect is calm, Oriented to person, place, time. Vital Signs: 19:41 BP 156 / 119; Pulse 93; Resp 16; Temp 98.4; mk4 19:41 Pulse Ox 96% on R/A; Weight 83.91 kg; Height 5 ft. 2 in. (157.48 cm); Pain 0/10; mk4 20:20 BP 140 / 80; Pulse 77; Resp 15; Pulse Ox 89% on R/A; Pain 0/10; mk4 20:51 BP 141 / 78; Pulse 76; Resp 17; Pulse Ox 91% on R/A; mk4 19:41 Body Mass Index 33.84 (83.91 kg, 157.48 cm) mk4 MDM: 19:12 Patient medically screened. de 19:16 Differential diagnosis: arrythmia, dehydration, stress disorder. Data reviewed: vital sc signs, nurses notes, old medical records, lab test result(s), EKG. Data reviewed: and as a result, I will continue to observe the patient. Counseling: I had a detailed discussion with the patient and/or guardian regarding: the historical points, exam findings, and any diagnostic results supporting the discharge/admit diagnosis, lab results, the need for outpatient follow up, to return to the emergency department if symptoms worsen or persist or if there are any questions or concerns that arise at home. ED course: HR 120s-130s palpated by me on arrival from parking lot, strong pulse. By the time on monitor hr <100 and anxiety diminishing. 10/25 05:15 EKG attached [facility] 10/24 19:31 Order name: CBC AUTO DIF, MDIF/RMOR IF IND [facility] 10/24 20:39 Interpretation: Normal: Normal. de 10/24 19:42 Order name: BASIC METABOLIC PANEL [facility] 10/24 20:39 Interpretation: Normal. de 10/24 19:42 Order name: MAGNESIUM EDID 10/24 20:39 Interpretation: Normal. de 10/24 20:39 Order name: TROPONIN I; Complete Time: 20:40 [facility] 10/24 20:40 Interpretation: Normal. de 10/24 19:12 Order name: 12-lead EKG; Complete Time: :45 de 10/24 19:12 Order name: Iv Saline Lock; Complete Time: :45 de 10/24 19:12 Order name: Place Patient On Monitor; Complete Time: :45 de 10/24 19:12 Order name: Pulse Ox Continuous; Complete Time: :45 de Dispensed Medications: 10/24 19:42 Drug: Aspirin Chewable Tablet 324 mg; Route: PO; mk4 20:55 Follow up: Response: No adverse reaction mk4 Signatures: Erik Cruz MD MD sc King, Melody mk4
== END 2016-10-24 20:56 | disposition home or self-care (01) ==
LOC: ER 19:05
DX: R00.2 Palpitations (principal); F41.9 Anxiety disorder, unspecified; I10 Essential (primary) hypertension; Z79.899 Other long term (current) drug therapy
CPT/HCPCS: 80048; 83735; 84484; 85025; 93010; 99284; 99285

== ENCOUNTER 2016-11-02 17:10 | Emergency (ER) | payer MEDICARE ==
--- NOTE | 2016-11-02 18:33 | ER PHYSICIAN DOCUMENTATION ---
Physician Documentation [facility] Name:Yasmine Harrison Age:76 yrs Sex:Female :1940 Arrival Date:11/02/2016 Time:17:10 Bed4 Private MD:Tori Araiza ED, Scott Disposition: 11/02/16 18:10 Discharged to Home/Self Care. Impression: Diarrhea. - Condition is Good. - Discharge Instructions: DIARRHEA, Unk Cause (Adult) Report Pendg. - Medical Reconciliation form form. - Follow up: Sergio Yost DO; When: Tomorrow; Reason: Recheck today's complaints, Continuance of care. - Problem is new. - Symptoms are unchanged. HPI: 11/02 17:58 This 76 yrs old Female presents to ER via Private Vehicle with complaints of sc Diarrhea. 17:58 The patient presents to the emergency department with diarrhea, a few times, described sc as watery, without any complaints of abdominal pain. Onset: The symptom(s)/episode began/occurred yesterday. Possible causes: antibiotics, diverticulitis one month ago. Associated signs and symptoms: The patient has no apparent associated signs or symptoms. Severity of symptoms: At their worst the symptoms were mild. Historical: - Allergies: Silicone; Sulfa (Sulfonamide Antibiotics); Adhesive bandage; - Home Meds: 1. losartan oral 2. Lorazepam Oral 3. gabapentin oral 4. Ranitidine Oral 5. Omeprazole Oral 6. Simethicone Oral 7. Gaviscon Oral 8. Lactaid Oral - PMHx: DIVERTICULITIS; HYPERTENSION; GERD; - PSHx: Hysterectomy; Tonsillectomy; - Tetanus: < 10 years. - Ebola Screening: : Patient negative for fever greater than or equal to 101.5 degrees Fahrenheit, and additional compatible Ebola Virus Disease symptoms. Patient denies exposure to infectious person. Patient denies travel to an Ebola-affected area in the 21 days before illness onset. No symptoms or risks identified at this time. . - Immunization history: Flu Vaccine < 1 year. - Social history: Smoking status: Patient states was never smoker of tobacco. ROS: 18:08 Constitutional: Negative for fever, chills, and weight loss. sc Eyes: Negative for injury, pain, redness, and discharge. Neck: Negative for injury, pain, and swelling. Cardiovascular: Negative for chest pain, palpitations, and edema. Respiratory: Negative for shortness of breath, cough, wheezing, and pleuritic chest pain. Back: Negative for injury and pain. MS/Extremity: Negative for injury and deformity. Skin: Negative for injury, rash, and discoloration. 18:08 Neuro: Negative for headache, weakness, numbness, tingling, and seizure. sc 18:08 Abdomen/GI: Positive for diarrhea, Negative for abdominal pain, nausea, vomiting. Exam: Constitutional: This is a well developed, well nourished patient who is awake, alert, and in no acute distress. Head/Face: Normocephalic, atraumatic. Eyes: Pupils equal round and reactive to light, extra-ocular motions intact. Lids and lashes normal. Conjunctiva and sclera are non-icteric and not injected. Cornea within normal limits. Periorbital areas with no swelling, redness, or edema. Neck: Trachea midline, no thyromegaly or masses palpated, and no cervical lymphadenopathy. Supple, full range of motion without nuchal rigidity, or vertebral point tenderness. No meningismus. Chest/axilla: Normal chest wall appearance and motion. Nontender with no deformity. No lesions are appreciated. Cardiovascular: Regular rate and rhythm with a normal S1 and S2. No gallops, murmurs, or rubs. Normal PMI, no JVD. No pulse deficits. Respiratory: Lungs have equal breath sounds bilaterally, clear to auscultation and percussion. No rales, rhonchi or wheezes noted. No increased work of breathing, no retractions or nasal flaring. Abdomen/GI: Soft, non-tender, with normal bowel sounds. No distension or tympany. No guarding or rebound. No evidence of tenderness throughout. Back: No spinal tenderness. No costovertebral tenderness. Full range of motion. Skin: Warm, dry with normal turgor. Normal color with no rashes, no lesions, and no evidence of cellulitis. 18:08 MS/ Extremity: Pulses equal, no cyanosis. Neurovascular intact. Full, normal range sc of motion, negative Homans's, calves equal bilaterally. 18:10 Cardiovascular: Exam negative for acute changes. sc 18:10 Abdomen/GI: Inspection: abdomen appears normal, Bowel sounds: normal, Palpation: abdomen is soft and non-tender. 18:10 Skin: Turgor: is good. Vital Signs: 17:38 BP 136 / 83; Pulse 77; Resp 18; Temp 98.2(O); Pulse Ox 96% on R/A; Weight 58.97 kg; cb Height 5 ft. 1 in. (154.94 cm); Pain 0/10; 17:38 Body Mass Index 24.56 (58.97 kg, 154.94 cm) cb MDM: 17:12 Patient medically screened. sc 18:09 Differential diagnosis: diverticulitis, gastroenteritis. Data reviewed: vital signs, sc nurses notes, old medical records, and as a result, I will discharge patient. Counseling: I had a detailed discussion with the patient and/or guardian regarding: the historical points, exam findings, and any diagnostic results supporting the discharge/admit diagnosis, the need for outpatient follow up, with the patient's primary care provider. 18:10 ED course: No indication for hospitalization at this time, supplies for outpt stool sc collection to check for c diff given to patient with lab orders.. Dispensed Medications: No medications were administered Signatures: Cyn Castillo, RN RN Erik Cevallos MD MD ok
--- NOTE | 2016-11-02 18:33 | ER NURSING DOCUMENTATION ---
Nurse's Notes [facility] Name:Yasmine Harrison Age:76 yrs Sex:Female :1940 Arrival Date:11/02/2016 Time:17:10 Bed4 Private MD:Tori Araiza Diagnosis:Diarrhea Presentation: 11/02 17:21 Presenting complaint: Patient states: diarrhea since Tuesday, only in the morning 2-3 cb stools yesterday. 6 stools today. Transition of care: Home. Notified ED Physician of patient's arrival and CC Dr. Cruz notified. 17:21 Method Of Arrival: Private Vehicle cb 17:21 Acuity: RON 3 cb Triage Assessment: 17:32 General: Appears in no apparent distress, well groomed, Behavior is cooperative. Pain: cb Complains of pain in right lower quadrant and left lower quadrant Pain At worst was 5 out of 10 on a pain scale. EENT: No deficits noted. Neuro: Level of Consciousness is awake, alert, Oriented to person, place, time, event. Cardiovascular: Pulses are 2+ in right radial artery. Respiratory: Airway is patent Trachea midline Respiratory effort is even, unlabored, Respiratory pattern is regular, symmetrical. GI: Reports anorexia, diarrhea, tolerance of fluids, anoxemia only today. : No deficits noted. Derm: No deficits noted. Musculoskeletal: No deficits noted. Historical: - Allergies: Silicone; Sulfa (Sulfonamide Antibiotics); Adhesive bandage; - Home Meds: 1. losartan oral 2. Lorazepam Oral 3. gabapentin oral 4. Ranitidine Oral 5. Omeprazole Oral 6. Simethicone Oral 7. Gaviscon Oral 8. Lactaid Oral - PMHx: DIVERTICULITIS; HYPERTENSION; GERD; - PSHx: Hysterectomy; Tonsillectomy; - Tetanus: < 10 years. - Ebola Screening: : Patient negative for fever greater than or equal to 101.5 degrees Fahrenheit, and additional compatible Ebola Virus Disease symptoms. Patient denies exposure to infectious person. Patient denies travel to an Ebola-affected area in the 21 days before illness onset. No symptoms or risks identified at this time. . - Immunization history: Flu Vaccine < 1 year. - Social history: Smoking status: Patient states was never smoker of tobacco. Screenin:40 Infectious Disease Risk None. Infectious Disease Risk None. Abuse screen: Denies cb threats or abuse. Denies injuries from another. Nutritional screening: No deficits noted. Vital Signs: 17:38 BP 136 / 83; Pulse 77; Resp 18; Temp 98.2(O); Pulse Ox 96% on R/A; Weight 58.97 kg; cb Height 5 ft. 1 in. (154.94 cm); Pain 0/10; 17:38 Body Mass Index 24.56 (58.97 kg, 154.94 cm) cb ED Course: 17:11 Patient arrived in ED. ds 17:11 Tori Araiza MD is Private Physician. ds 17:12 Erik Cruz MD is Attending Physician. sc 17:21 Cyn Castillo RN is Primary Nurse. cb 17:22 Triage completed. cb 17:40 Valuables Remains with patient Patient has correct armband on for positive cb identification. Placed in gown. Bed in low position. Call light in reach. Pulse Ox - RN Monitoring Only NIBP On - RN Monitoring Only. 17:41 Diet: Patient is NPO. cb 18:10 Sergio Yost DO is Referral Physician. sc Administered Medications: No medications were administered Outcome: 18:10 Discharge ordered by . sc 18:25 Discharged to home ambulatory, with friend. cb 18:25 Condition: good 18:25 Discharge Assessment: Patient awake, alert and oriented x 3. No cognitive and/or functional deficits noted. Patient verbalized understanding of disposition instructions. 18:25 Discharge instructions given to patient, Instructed on discharge instructions, follow up and referral plans. stool specimen collection 18:33 Patient left the ED. cb 11/03 11:12 Discharge F/U Call: Spoke with: patient. Overall Care on a scale of 1-[address] being the best care, you rate our care as: Other comments: pt has not had a loose stool today. pt is feeling ok and has a fallow up appointment this afternoon. Signatures: Cyn Castillo RN RN cb Twombly, Summer, RN RN st Srot, Erica, Reg Reg ds Erik Cruz MD MD in
== END 2016-11-02 18:33 | disposition home or self-care (01) ==
LOC: ER 17:10
DX: R19.7 Diarrhea, unspecified (principal); I10 Essential (primary) hypertension; Z79.899 Other long term (current) drug therapy
CPT/HCPCS: 99281; 99282

== ENCOUNTER 2017-01-11 13:21 | Emergency (ER) | payer MEDICARE ==
[2017-01-11 13:47] LABS: BASOPHILS 0.7 % (0.0-2.0); EOSINOPHILS 3.2 % (0.0-6.0); EOSINOPHILS# 0.2 X 10^3uL (0.0-0.4); HEMATOCRIT 46.8 % (36.0-48.0); HEMOGLOBIN 16.2 g/dL (12.0-16.0); LYMPHOCYTES 17.2 % (20.0-40.0); MEAN CORPUS. HGB CONCENTRATION 34.7 g/dL (32.0-36.0); MEAN CORPUSCULAR HEMOGLOBIN 29.1 pg (29.0-35.0); MEAN PLATELET VOLUME 7.9 fL (7.4-10.4); MONOCYTES 6.7 % (2.0-10.0); MONOCYTES# 0.4 X 10^3uL (0.2-1.0); NEUTROPHILS 72.2 % (54.0-75.0); NEUTROPHILS# 4.2 X 10^3uL (2.6-6.7); PLATELET COUNT 185 X 10^3uL (130-440); RED BLOOD COUNT 5.57 X 10^6uL (4.20-6.10); RED CELL DISTRIBUTION WIDTH 12.8 % (11.5-14.5); WHITE BLOOD COUNT 5.8 X 10^3uL (3.9-10.7)
[2017-01-11 13:57] LABS: BLOOD UREA NITROGEN 11 mg/dL (7-17); CALCIUM 9.5 mg/dL (8.4-10.2); CHLORIDE 102 mmol/L (98-107); CREATININE 0.8 mg/dL (0.5-1.0); EST GLOMERULAR FILTRATION RATE > 60 mL/min; GLUCOSE 103 mg/dL (70-100); POTASSIUM 3.6 mmol/L (3.5-5.1); SODIUM 141 mmol/L (137-145)
[2017-01-11 14:12] LABS: TROPONIN I < 0.012 ng/mL (0.00-0.034)
--- NOTE | 2017-01-11 15:04 | ER NURSING DOCUMENTATION ---
Nurse's Notes [facility] Name:Yasmine Harrison Age:76 yrs Sex:Female :1940 Arrival Date:01/11/2017 Time:13:21 BedTrauma-C Private MD: Diagnosis:Palpitations Presentation: 01/11 13:39 Presenting complaint: Patient states: palpitations and dizziness. Transition of care: lp Home. 13:39 Acuity: RON 2 lp 13:39 Method Of Arrival: Walk In lp Triage Assessment: 13:44 General: Appears in no apparent distress, Behavior is appropriate for age. Pain: Denies lp pain. EENT: No deficits noted. Neuro: Level of Consciousness is awake, alert, Oriented to person, place, time, event, Tube Coverer are equal bilaterally Moves all extremities. Cardiovascular: No deficits noted. Capillary refill < 3 seconds. Respiratory: Airway is patent Respiratory effort is even, unlabored. GI: No deficits noted. : No deficits noted. Derm: No deficits noted. Musculoskeletal: No deficits noted. Historical: - Allergies: SULFA (SULFONAMIDES); Silicone; Adhesive; - Home Meds: 1. losartan 50 mg oral tab 1 tab once daily 2. lorazepam 0.5 mg oral tab 1 tab 3 times per day 3. gabapentin 100 mg oral tab twice a day 4. ranitidine HCl 150 mg oral cap 1 cap 2 times per day 5. simethicone 80 mg oral tab 6. Gaviscon 200 mg calcium (500 mg) oral chew 7. Lactaid 3,000 unit oral chew for Lactose Intolerance - PMHx: Hypertension; ANXIETY; palpitations; neuropathy; lactose intolerance; GERD; - PSHx: Unable to obtain; - Tetanus: < 10 years. - Ebola Screening: : Patient negative for fever greater than or equal to 101.5 degrees Fahrenheit, and additional compatible Ebola Virus Disease symptoms. Patient denies exposure to infectious person. Patient denies travel to an Ebola-affected area in the 21 days before illness onset. . - Immunization history: Pneumococcal vaccine is up to date, Flu Vaccine < 1 year. - Social history: Smoking status: Patient states was never smoker of tobacco. Screenin:45 Infectious Disease Risk None. Abuse screen: Denies threats or abuse. Denies injuries lp from another. Nutritional screening: No deficits noted. Assessment: 13:45 See Triage Assessment done by same RN. lp Vital Signs: 13:39 BP 139 / 111; Pulse 71; Resp 16; Temp 98.2(O); Pulse Ox 93% on R/A; Weight 54.43 kg; lp Height 5 ft. 1 in. (154.94 cm); Pain 0/10; 14:00 BP 132 / 69; Pulse 75; Resp 16; Pulse Ox 90% on R/A; lp 14:00 BP 140 / 70; Pulse 78; Resp 14; Pulse Ox 92% on R/A; lp 13:39 Body Mass Index 22.67 (54.43 kg, 154.94 cm) lp ED Course: 13:23 Patient arrived in ED. cj 13:29 EKG done. (by ED staff). Reviewed by Edwar Horne MD. lc 13:31 Edwar Horne MD is Attending Physician. carmelo 13:39 Mouna Wood, RN is Primary Nurse. lp 13:39 Triage completed. lp 13:44 Labs drawn. (by ED staff). Sent per order to lab. Inserted peripheral IV: 20 gauge in lc right antecubital area and blood collected. 13:46 Valuables Remains with patient Patient has correct armband on for positive lp identification. Placed in gown. Bed in low position. Call light in reach. Side rails up X 1. Cardiac Monitoring On for Nurse Monitoring only. Pulse Ox - RN Monitoring Only NIBP On - RN Monitoring Only. 13:51 CHEST; [place] [id number] In Process Unspecified. EDMS 13:55 EKG attached lp 14:40 Tori Araiza MD is Referral Physician. carmelo Administered Medications: 13:43 Drug: NS 0.9% 1000 ml; Route: IV; Rate: bolus; Infused Over: 1 hrs; Site: right lc antecubital; 14:31 Follow up: Response: No adverse reaction; No change in condition; IV Status: Completed lp infusion; IV Intake: 1000ml Point of Care Testing: Urine Dip: 14:29 pH: 7.0; ; Specific [place]: 1.010; Ketones: Negative; Glucose: Negative; Protein: lc Negative; Leukocytes: Negative; Nitrite: Negative ; Blood: Negative; Bilirubin: Negative ; Urobilinogen: Normal Intake: 14:31 IV: 1000ml; Total: 1000ml. lp Outcome: 13:31 Discharge ordered by . carmelo 14:40 Discharge ordered by . carmelo 14:58 Discharged to home ambulatory. lp 14:58 Condition: improved 14:58 Instructed on discharge instructions, follow up and referral plans. medication usage. 15:03 Patient left the ED. 01/12 11:11 Discharge F/U Call: Unable to reach: no answer st 11:17 Discharge F/U Call: Spoke with: patient. other: Name: pt not had any repeat of any st symptoms. Signatures: Dispatcher [employer] EDND Dalia Ornelas RN RN st Coleman, Linda, RN RN Mouna Hinson RN RN lp Meyer, John, MD MD jm Jones, Carissa cj
--- NOTE | 2017-01-11 15:04 | ER PHYSICIAN DOCUMENTATION ---
Physician Documentation [facility] Name:Yasmine Harrison Age:76 yrs Sex:Female :1940 Arrival Date:01/11/2017 Time:13:21 BedTrauma-C Private MD: Edwar Krueger Disposition: 01/11/17 14:40 Discharged to Home/Self Care. Impression: Palpitations. - Condition is Good. - Discharge Instructions: PALPITATIONS. - Medical Reconciliation form form. - Follow up: Private Physician; When: As needed; Reason: Continuance of care. Follow up: Tori Araiza MD; When: 1 week; Reason: Continuance of care. - Problem is new. - Symptoms have improved. HPI: 01/11 15:00 This 76 yrs old Female presents to ER via Walk In with complaints of jm Palpitations, Dizziness, General Weakness. 15:00 The patient presents with a history of heart skipping beats. Context: The symptoms jm occur at rest. Onset: The symptom(s)/episode began/occurred today. Duration: The patient or guardian reports multiple episodes, that are intermittent, with no pattern. Modifying factors: The symptoms are aggravated by nothing. Associated signs and symptoms: Pertinent positives: anxiety, lightheadedness, generalized weakness. Severity of symptoms: in the emergency department the symptoms are unchanged. The patient has experienced similar episodes in the past, and the symptoms today are exactly the same, to previous episodes of this, but pt has been screened and evaluated. Dr. Araiza's thought was this is anxiety related. . The patient has been recently seen by a physician: the patient's primary care provider, 1 week(s) ago, with similar presenting complaints. Historical: - Allergies: SULFA (SULFONAMIDES); Silicone; Adhesive; - Home Meds: 1. losartan 50 mg oral tab 1 tab once daily 2. lorazepam 0.5 mg oral tab 1 tab 3 times per day 3. gabapentin 100 mg oral tab twice a day 4. ranitidine HCl 150 mg oral cap 1 cap 2 times per day 5. simethicone 80 mg oral tab 6. Gaviscon 200 mg calcium (500 mg) oral chew 7. Lactaid 3,000 unit oral chew for Lactose Intolerance - PMHx: Hypertension; ANXIETY; palpitations; neuropathy; lactose intolerance; GERD; - PSHx: Unable to obtain; - Tetanus: < 10 years. - Ebola Screening: : Patient negative for fever greater than or equal to 101.5 degrees Fahrenheit, and additional compatible Ebola Virus Disease symptoms. Patient denies exposure to infectious person. Patient denies travel to an Ebola-affected area in the 21 days before illness onset. . - Immunization history: Pneumococcal vaccine is up to date, Flu Vaccine < 1 year. - Social history: Smoking status: Patient states was never smoker of tobacco. ROS: 15:00 Constitutional: Negative for fatigue, fever. jm 15:00 Eyes: Negative for blurry vision, visual disturbance. 15:00 Cardiovascular: Positive for palpitations, Negative for chest pain. 15:00 Respiratory: Negative for cough, shortness of breath. 15:00 Neuro: Positive for dizziness, weakness. 15:00 Psych: Positive for anxiety, Negative for insomnia. 15:00 All other systems are negative. Exam: 15:00 Eyes: Pupils equal round and reactive to light, extra-ocular motions intact. Lids and jm lashes normal. Conjunctiva and sclera are non-icteric and not injected. Cornea within normal limits. Periorbital areas with no swelling, redness, or edema. ENT: Nares patent. No nasal discharge, no septal abnormalities noted. Tympanic membranes are normal and external auditory canals are clear. Oropharynx with no redness, swelling, or masses, exudates, or evidence of obstruction, uvula midline. Mucous membranes moist. Neck: Trachea midline, no thyromegaly or masses palpated, and no cervical lymphadenopathy. Supple, full range of motion without nuchal rigidity, or vertebral point tenderness. No Meningismus. Chest/axilla: Normal chest wall appearance and motion. Nontender with no deformity. No lesions are appreciated. Cardiovascular: Regular rate and rhythm with a normal S1 and S2. No gallops, murmurs, or rubs. Normal PMI, no JVD. No pulse deficits. Respiratory: Lungs have equal breath sounds bilaterally, clear to auscultation and percussion. No rales, rhonchi or wheezes noted. No increased work of breathing, no retractions or nasal flaring. Abdomen/GI: Soft, non-tender, with normal bowel sounds. No distension or tympany. No guarding or rebound. No evidence of tenderness throughout. Skin: Warm, dry with normal turgor. Normal color with no rashes, no lesions, and no evidence of cellulitis. MS/ Extremity: Pulses equal, no cyanosis. Neurovascular intact. Full, normal range of motion. Neuro: Awake and alert, GCS 15, oriented to person, place, time, and situation. Cranial nerves II-XII grossly intact. Motor strength 5/5 in all extremities. Sensory grossly intact. Cerebellar exam normal. Normal gait. 15:00 Psych: Awake, alert, with orientation to person, place and time. Behavior, mood, and jm affect are within normal limits. 15:00 Constitutional: The patient appears alert, awake, comfortable. Vital Signs: 13:39 BP 139 / 111; Pulse 71; Resp 16; Temp 98.2(O); Pulse Ox 93% on R/A; Weight 54.43 kg; lp Height 5 ft. 1 in. (154.94 cm); Pain 0/10; 14:00 BP 132 / 69; Pulse 75; Resp 16; Pulse Ox 90% on R/A; lp 14:00 BP 140 / 70; Pulse 78; Resp 14; Pulse Ox 92% on R/A; lp 13:39 Body Mass Index 22.67 (54.43 kg, 154.94 cm) lp MDM: 13:25 Patient medically screened. 13:55 EKG attached lp 16:37 Differential diagnosis: arrythmia, dehydration, stress disorder. Data reviewed: vital jm signs, nurses notes, old medical records, lab test result(s), EKG, radiologic studies, and as a result, I will discharge patient. Test interpretation: by ED physician or midlevel provider: plain radiologic studies, ECG. Counseling: I had a detailed discussion with the patient and/or guardian regarding: the historical points, exam findings, and any diagnostic results supporting the discharge/admit diagnosis, lab results, radiology results, the need for outpatient follow up, with the patient's primary care provider. ECG:. Physician consultation: Tori Araiza MD regarding patient's condition, and will see patient next week. ED course: Labs, VS, CXR, EKG, and Exam all WNL. I do not have a good reason for her sx. Dr. Araiza suggested anxiety and I agree. Dr. Araiza called and can see pt next week for f/u. 01/11 13:55 Order name: CBC AUTO DIF, MDIF/RMOR IF IND; Complete Time: 14:13 [facility] 01/11 14:05 Order name: BASIC METABOLIC PANEL; Complete Time: 14: [facility] 01/11 14:05 Order name: MAGNESIUM; Complete Time: 14:13 [facility] 01/11 14:12 Order name: TROPONIN I; Complete Time: 14:13 [facility] 01/11 13:51 Order name: CHEST; [place] [id number] EDSD 01/11 18:27 Order name: CHEST; [place] [id number] [facility]SD 01/11 13:42 Order name: EKG - 12 Lead; Complete Time: 13:42 EC:37 Rhythm is regular. QRS [place] is Normal. AR interval is normal. QRS interval is normal. QT interval is normal. No Q waves. T waves are Normal. No ST changes noted. Dispensed Medications: 13:43 Drug: NS 0.9% 1000 ml; Route: IV; Rate: bolus; Infused Over: 1 hrs; Site: right antecubital; 14:31 Follow up: Response: No adverse reaction; No change in condition; IV Status: Completed lp infusion; IV Intake: 1000ml Point of Care Testing: Urine Dip: 14:29 pH: 7.0; ; Specific [place]: 1.010; Ketones: Negative; Glucose: Negative; Protein: lc Negative; Leukocytes: Negative; Nitrite: Negative ; Blood: Negative; Bilirubin: Negative ; Urobilinogen: Normal Signatures: Monisha Posadas RN RN lc Pavlish, Lena, RN RN lp Meyer, John, MD MD jm
--- NOTE | 2017-01-11 17:46 | RADIOLOGY REPORT ---
A limited single portable view of the chest is compared with prior films dated . The heart and vessels are stable and unremarkable. The lung quinn are clear. No infiltrate, fluid or pneumothorax is seen. IMPRESSION: Stable, unremarkable limited single portable view of the chest. MTDD
== END 2017-01-11 15:04 | disposition home or self-care (01) ==
LOC: ER 13:21
DX: R00.2 Palpitations (principal); R42 Dizziness and giddiness; R53.1 Weakness; R41.9 Unspecified symptoms and signs involving cognitive functions and awareness; I10 Essential (primary) hypertension; Z79.899 Other long term (current) drug therapy
CPT/HCPCS: 71010; 80048; 83735; 84484; 85025; 93005; 93010; 96360; 99284; 99285